=== PATIENT | female | born 1970 | race Caucasian/White ===

== ENCOUNTER 2017-01-22 14:58 | Outpatient (CLI) | payer OTHER ==
--- NOTE | 2017-01-22 17:42 | DIAGNOSTIC IMAGING REPORT ---
PROCEDURE: MR LOW EXT NONJOINT WO CON-LT INDICATION: METATARSAL FX POSSIBLE NON UNION TECHNIQUE: T1 and STIR sagittal, axial and coronal images of the foot. T1 and STIR axial-oblique images of the mid and distal foot. COMPARISON: None. FINDINGS: Oblique fracture of the third metatarsal shaft with minor displacement. There is bone marrow edema as well as thickening of the medial cortex suggestive of healing. Minor bone contusion of the distal fourth metatarsal. Mild soft tissue swelling around the third and fourth metatarsals. Mild degenerative changes of the tarsal and first MTP joints. Normal tibiotalar joint. Normal sinus tarsi. Normal Achilles tendon and plantar fascia. IMPRESSION: 1. Left third metatarsal shaft oblique fracture with evidence of healing. Correlate with x-rays. 2. Distal fourth metatarsal bone contusion which may represent an occult fracture.
== END 2017-01-22 23:00 ==
LOC: MRI SRH 14:58
DX: S92.302D Fracture of unspecified metatarsal bone(s), left foot, subsequent encounter for fracture with routine healing (principal); X58.XXXD Exposure to other specified factors, subsequent encounter